=== PATIENT | male | born 1990 | race Caucasian/White ===

== ENCOUNTER 2018-03-06 15:05 | Emergency (ER) | payer OTHER ==
[2018-03-06 16:16] LABS: Arterial Blood Carboxyhemoglob 2.6 % (0-1.5); Blood Gas Oxyhemoglobin 93.2 % (94-97); Blood O2 Saturation 96.7 % (92-98.5)
[2018-03-06 16:32] LABS: Absolute Lymphocytes (CBC) 2.3 K/uL (0.7-4.9); Absolute Monocytes 0.5 K/uL (0.1-1.3); Absolute Neutrophil 6.1 K/uL (1.8-8.0); Basophils % 0.6 % (0-1.3); Eosinophils % 2.6 % (0-4.4); Hematocrit 43.6 % (39.6-49.0); Lymphocytes % 24.8 % (15.3-44.8); MCH 30.6 pg (27.0-35.0); MCV 88.7 fL (80-100); MPV 8.4 fL (7.6-11.3); Monocytes % 5.9 % (3.3-12.3); RBC Red Blood Cell Count 4.91 M/uL (4.33-5.43)
[2018-03-06 16:47] LABS: Albumin 4.1 g/dL (3.4-5.0); Bilirubin Total 0.6 mg/dL (0.2-1.0); Potassium 3.8 mmol/L (3.5-5.1); Protein, Total 7.6 g/dL (6.4-8.2)
--- NOTE | 2018-03-06 17:12 | RAD REPORT ---
EXAM DESCRIPTION: RAD - Chest Pa And Lat (2 Views) - 03/06/2018 4:03 pm CLINICAL HISTORY: Inhalation injury, chemical exposure COMPARISON: None. TECHNIQUE: PA and lateral views of the chest were obtained. FINDINGS: The lungs are clear of pulmonary edema. No focal lung parenchymal process. No failure or v olume overload. Heart size is normal and central vasculature is within normal limits. No pleural e ffusion or pneumothorax seen. No acute bony finding noted. No aortic abnormality. IMPRESSION: No acute cardiopulmonary process.
--- NOTE | 2018-03-06 17:20 | ER ---
Nurse's Notes [facility] Name: Abiodun Oconnor Age: 27 yrs Sex: Male : 1990 Arrival Date: 03/06/2018 Time: 15:09 Bed 20 Private MD: Diagnosis: Chemical Inhalation Presentation: 03/06 15:21 Presenting complaint: Patient states: "We were doing inbounds and walked past a car aj1 that was full of formaldehyde and got a big whiff of it" Denies shortness of breath. Reports dry mouth and a scratchy sensation in the back of his throat. Denies pain. Transition of care: patient was not received from another setting of care. Onset of symptoms was March 06, 2018 at 12:30. Risk Assessment: Do you want to hurt yourself or someone else? Patient reports no desire to harm self or others. Initial Sepsis Screen: Does the patient meet any 2 criteria? No. Patient's initial sepsis screen is negative. Does the patient have a suspected source of infection? No. Patient's initial sepsis screen is negative. Care prior to arrival: None. 15:21 Method Of Arrival: Ambulatory [facility] 15:21 Acuity: MARTHA 3 aj1 Triage Assessment: 15:24 General: Appears in no apparent distress. comfortable, Behavior is calm, cooperative, aj1 appropriate for age. Pain: Denies pain. EENT: Reports scratchy feeling in the back of his throat. Neuro: Level of Consciousness is awake, alert, obeys commands. Cardiovascular: Patient's skin is warm and dry. Respiratory: Airway is patent Respiratory effort is even, unlabored, Respiratory pattern is regular, symmetrical, Denies shortness of breath. Historical: - Allergies: 15:24 No Known Allergies; aj1 - Home Meds: 15:24 None [Active]; aj1 - PMHx: 15:24 None; aj1 - PSHx: 15:24 None; aj1 - Immunization history:: Flu vaccine status is unknown. - Social history:: Smoking status: Patient uses tobacco products, smokes one-half pack cigarettes per day. - Ebola Screening: : Patient denies travel to an Ebola-affected area in the 21 days before illness onset. Screenin:55 Abuse screen: Denies threats or abuse. Nutritional screening: No deficits noted. em Tuberculosis screening: No symptoms or risk factors identified. Fall Risk None identified. Assessment: 15:45 Reassessment: Poison control contacted. Recommendations: Formaldehyde is a possible aj1 respiratory irritate. If shortness of breath develops give breathing treatment such as albuterol, systemic corticosteroids and symptomatic care. CBC. CMP, ABG should be drawn as well if symptoms develop. Observation time should be for at least 4 hours. 15:50 General: Appears in no apparent distress. comfortable, Behavior is calm, cooperative. em Pain: Denies pain. Neuro: Level of Consciousness is awake, alert, obeys commands, Oriented to person, place, time, situation. Cardiovascular: Heart tones S1 S2 present Capillary refill < 3 seconds. Respiratory: Airway is patent Respiratory effort is even, unlabored, Respiratory pattern is regular, symmetrical, Breath sounds are clear bilaterally. GI: Abdomen is round non-distended. : No signs and/or symptoms were reported regarding the genitourinary system. EENT: No signs and/or symptoms were reported regarding the EENT system. Derm: Skin is intact, Skin is pink, warm \\T\\ dry. Musculoskeletal: Circulation, motion, and sensation intact. Capillary refill < 3 seconds, Range of motion: intact in all extremities. 15:55 Reassessment: I agree with previous assessment. hb Vital Signs: 15:24 BP 142 / 89; Pulse 70; Resp 18; Temp 98.3(TE); Pulse Ox 98% on R/A; Weight 142.88 kg aj1 (R); Height 6 ft. 0 in. (182.88 cm) (R); Pain 0/10; 16:30 BP 138 / 71; Pulse 67; Resp 16; Pulse Ox 99% on R/A; Pain 0/10; em 17:37 BP 130 / 62; Pulse 67; Resp 18; Pulse Ox 98% on R/A; Pain 0/10; em 15:24 Body Mass Index 42.72 (142.88 kg, 182.88 cm) [facility] ED Course: 15:09 Patient arrived in ED. as 15:23 Triage completed. aj1 15:24 Arm band placed on Patient placed in an exam room. [facility] 15:31 Gadiel Torres PA is PHCP. [facility] 15:31 Pavan West MD is Attending Physician. [facility] 15:55 Trejo, Evans, RAIL WALKER is Primary Nurse. em 15:55 Patient has correct armband on for positive identification. Bed in low position. Call em light in reach. Adult w/ patient. 16:01 Chest Pa And Lat (2 Views) XRAY In Process Unspecified. EDMS 16:20 No provider procedures requiring assistance completed. Initial lab(s) drawn, by me, em sent to lab. Inserted saline lock: 20 gauge in right antecubital area, using aseptic technique. Blood collected. 17:38 IV discontinued, intact, bleeding controlled, No redness/swelling at site. Pressure em dressing applied. Administered Medications: No medications were administered Outcome: 17:20 Discharge ordered by MD. anibalm 17:38 Discharged to home ambulatory. em 17:38 Condition: good 17:38 Discharge instructions given to patient, Instructed on discharge instructions, follow up and referral plans. Demonstrated understanding of instructions, follow-up care. 17:38 Patient left the ED. em Signatures: Dispatcher [employer] Kya Vela, RN RN aj1 Gadiel Torres PA PA Evans Luna, RAIL WALKER RAIL WALKER em Marleny Amaro Heather, JOSÉ MIGUEL RN
--- NOTE | 2018-03-06 17:20 | EDPHYS ---
Physician Documentation [facility] Name: Abiodun Oconnor Age: 27 yrs Sex: Male : 1990 Arrival Date: 03/06/2018 Time: 15:09 Bed 20 Private MD: ED Physician Pavan West HPI: 03/06 15:48 This 27 yrs old Male presents to ER via Ambulatory with complaints of [facility] Exposure to Formaldehyde. 15:48 The patient presents with sore throat. Onset: The symptoms/episode began/occurred jm acutely, just prior to arrival. Associated signs and symptoms: Pertinent positives: Pertinent negatives chest pain, cough, shortness of breath. 15:48 This is a 27 year old male with no chronic medical conditions that presents to the ED jmm with complaints of nasal and throat irritation following inhalation of Formaldehyde/Methanol while inspecting a rail car. . Patient denies shortness of breath or chest pain. Historical: - Allergies: 15:24 No Known Allergies; aj1 - Home Meds: 15:24 None [Active]; aj1 - PMHx: 15:24 None; aj1 - PSHx: 15:24 None; aj1 - Immunization history:: Flu vaccine status is unknown. - Social history:: Smoking status: Patient uses tobacco products, smokes one-half pack cigarettes per day. - Ebola Screening: : Patient denies travel to an Ebola-affected area in the 21 days before illness onset. ROS: 15:48 Constitutional: Negative for fever, chills, and weight loss. jmm 15:48 Neck: Negative for injury, pain, and swelling, Cardiovascular: Negative for chest pain, palpitations, and edema, Respiratory: Negative for shortness of breath, cough, wheezing, and pleuritic chest pain, Skin: Negative for injury, rash, and discoloration. 15:48 ENT: Positive for sore throat. 15:48 All other systems are negative. Exam: 15:48 Constitutional: This is a well developed, well nourished patient who is awake, alert, jmm and in no acute distress. Head/Face: atraumatic. 15:48 ENT: Posterior pharynx: is normal. 15:48 Respiratory: the patient does not display signs of respiratory distress, Respirations: normal, Breath sounds: are clear throughout. 15:48 Abdomen/GI: Inspection: abdomen appears normal, Bowel sounds: normal, Palpation: abdomen is soft and non-tender, soft, in all quadrants. 15:48 Back: ROM is normal. 15:48 Skin: Appearance: Color: normal in color. 15:48 Neuro: Orientation: is normal, Mentation: is normal, Memory: is normal, Gait: is steady. 15:48 Psych: Behavior/mood is pleasant, cooperative. Vital Signs: 15:24 BP 142 / 89; Pulse 70; Resp 18; Temp 98.3(TE); Pulse Ox 98% on R/A; Weight 142.88 kg [facility] (R); Height 6 ft. 0 in. (182.88 cm) (R); Pain 0/10; 16:30 BP 138 / 71; Pulse 67; Resp 16; Pulse Ox 99% on R/A; Pain 0/10; em 17:37 BP 130 / 62; Pulse 67; Resp 18; Pulse Ox 98% on R/A; Pain 0/10; em 15:24 Body Mass Index 42.72 (142.88 kg, 182.88 cm) [facility] MDM: 15:43 Patient medically screened. [facility] 16:23 Data reviewed: vital signs, nurses notes. ED course: RN discussed plan of care with [facility] poison control whom recommended chest xray, 4 hour observation from onset. With labs. 17:18 ED course: Imaging studies negative, ABG wnl. Patient is asymptomatic on discharge. . [facility] 03/06 15:50 Order name: ABG; Complete Time: 16:18 [facility] 03/06 15:50 Order name: CBC with Diff; Complete Time: 16:37 [facility] 03/06 15:43 Order name: Chest Pa And Lat (2 Views) XRAY; Complete Time: 17:18 [facility] 03/06 15:50 Order name: CMP; Complete Time: 16:52 [facility] 03/06 15:54 Order name: EKG - Nurse/Tech; Complete Time: 17:37 [facility] Administered Medications: No medications were administered Disposition: 03/06/18 17:20 Discharged to Home. Impression: Chemical Inhalation. - Condition is Stable. - Discharge Instructions: Chemical Inhalation Injury, Adult. - Medication Reconciliation Form, Thank You Letter, Antibiotic Education, Prescription Opioid Use form. - Follow up: Private Physician; When: 1 - 2 days; Reason: Recheck today's complaints, Continuance of care, Re-evaluation by your physician. Addendum: 03/15/2018 08:23 Co-signature as Attending Physician, Pavan West MD. r n Signatures: Dispatcher [employer] Kya Vela, RN RN aj1 Gadiel Torres PA PA connor Trejo, Evans, NEGATIVE STRIPPER NEGATIVE STRIPPER em Pavan West MD MD rn liaison: (The following items were deleted from the chart) 03/06 17:38 17:20 03/06/2018 17:20 Discharged to Home. Impression: Chemical Inhalation. Condition em is Stable. Forms are Medication Reconciliation Form, Thank You Letter, Antibiotic Education, Prescription Opioid Use. Follow up: Private Physician; When: 1 - 2 days; Reason: Recheck today's complaints, Continuance of care, Re-evaluation by your physician. connor
--- NOTE | 2018-03-07 08:31 | EKG ---
Test Date: 2018-03-06 Test Time: 16:42:27 Mud Mixer Operator: BJ MEASUREMENT RESULTS: Intervals: Rate: 61 ID: [id number] QRSD: 84 QT: 370 QTc: 372 [place]: P: 21 ID: [id number] QRS: 5 T: 42 INTERPRETIVE STATEMENTS: Normal sinus rhythm Normal ECG No previous ECG available for comparison Electronically Signed On 03-07-18 08:30:32 CDT by Crow Davis
== END 2018-03-06 17:38 | disposition home or self-care (01) ==
LOC: ER 15:05
DX: J02.9 Acute pharyngitis, unspecified (principal); T59.2X1A Toxic effect of formaldehyde, accidental (unintentional), initial encounter; Y92.89 Other specified places as the place of occurrence of the external cause; F17.210 Nicotine dependence, cigarettes, uncomplicated
CPT/HCPCS: 36415; 71046; 80053; 82805; 85025; 93005; 99283